=== PATIENT | female | born 1985 | race Caucasian/White ===

== ENCOUNTER 2017-02-03 18:34 | Emergency (ER) | payer MEDICAID ==
[~2017-02-03] VITALS: Ht 160 cm; Wt 60.0 kg
[2017-02-03 18:38] VITALS: Ht 160 cm; Wt 60.0 kg
[2017-02-03 20:47] LABS: URINE BLOOD (Dip) POC Trace-intact (NEGATIVE)
--- NOTE | 2017-02-03 20:51 | RADRPT ---
PROCEDURE: XR Chest. CLINICAL INDICATION: Cough. TECHNIQUE: Single frontal view. COMPARISON: None. FINDINGS: The lungs are clear. The heart size is normal. There is no pleural effusion. There is no pneumothorax. IMPRESSION: 1. Normal chest radiograph. RPTAT: QQ .Aj Peace MD, Date Time Electronically viewed and signed by .Aj Peace MD, on 02/03/2017 20:50 .R/
[2017-02-03 21:04] LABS: BASOPHIL # 0.1 10^3/ul (0.0-0.1); BASOPHILS % 0.7 % (0.0-2.0); EOSINOPHILS % 0.2 % (0.0-7.0); HEMATOCRIT 38.9 % (37.0-47.0); HEMOGLOBIN 13.4 g/dl (12.0-16.0); LYMPHOCYTES # 3.3 10^3/ul (0.8-2.9); LYMPHOCYTES % 37.3 % (15.0-51.0); MEAN CORPUSCULAR HEMOGLOBIN 30.2 pg (29.0-33.0); MEAN CORPUSCULAR HGB CONC 34.4 g/dl (32.0-37.0); MEAN CORPUSCULAR VOLUME 87.6 fl (82.0-101.0); MEAN PLATELET VOLUME 8.4 fl (7.4-10.4); MONOCYTE # 0.5 10^3/ul (0.3-0.9); MONOCYTES % 5.2 % (0.0-11.0); NEUTROPHILS % 56.4 % (39.0-77.0); PLATELET COUNT 419 10^3/UL (140-415); RED BLOOD COUNT 4.44 10^6/ul (4.20-5.40); RED CELL DISTRIBUTION WIDTH 11.9 % (11.5-14.5); WHITE BLOOD COUNT 8.9 10^3/ul (4.8-10.8)
[2017-02-03 21:24] LABS: CALCIUM 9.9 mg/dl (8.4-10.2); CREATININE 0.77 mg/dl (0.44-1.00); POTASSIUM 3.5 mmol/L (3.5-5.1)
--- NOTE | 2017-02-03 22:23 | ERD ---
ER Documentation Chief Complaint Chief Complaint anxiety r/t emotional family news received, tearful, carpalpedal spasms HPI Patient is a 31-year-old female here with who presents to the ED with 1 week of palpitations on and off, stress, anxiety reaction and difficulty breathing for the last 10 days. She states that the symptoms come and go. Denies radiation of pain. Denies chest pain. States that she went to the emergency room last week and was given albuterol which has not really helped. 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 She also complains of bilateral numbness and tingling in her hands and feet. She denies weakness or syncopal episode. Denies headache or dizziness. Denies suicidal or homicidal ideations. ROS All systems reviewed and are negative except as per history of present illness. PMhx/Soc Medical and Surgical Hx: pt denies Surgical Hx Hx Respiratory Disorders: Yes (BRONCHOSPASMS) Hx Alcohol Use: No Hx Substance Use: No Hx Tobacco Use: No Smoking Status: Never smoker Physical Exam Vitals Vital Signs Date Time Temp Pulse Resp B/P Pulse Ox O2 Delivery O2 Flow Rate FiO2 02/03/17 18:38 98.2 95 20 136/72 100 Physical Exam GENERAL: Well-developed, well-nourished female. Appears in no acute distress. tearful in room. HEAD: Normocephalic, atraumatic. EYES: Pupils are equally reactive bilaterally. EOMs grossly intact. No conjunctival erythema. ENT: Moist mucous membranes. No uvula deviation. No kissing tonsils. No exudates. NECK: Supple. No lymphadenopathy or thyromegaly. No meningismus. negative kernig. negative brudinski. LUNG: Clear to auscultation bilaterally. No rhonchi, wheezing, rales or coarse breath sounds. HEART: Regular rate and rhythm. No murmurs, rubs or gallops. Extremities: Equal pulses bilaterally. No peripheral clubbing, cyanosis or edema. No unilateral leg swelling. NEUROLOGIC: Alert and oriented. Moving all four extremities. 5/5 strength in all extremities. Normal speech. Steady gait. cranial nerves II through XII intact. Negative Romberg test. No ataxia. SKIN: Normal color. Warm and dry. No rashes or lesions. Capillary refill < 2 seconds Result Diagram: 02/03/17204302/03/172043 Results 24 hrs Laboratory Tests Test 02/03/17 20:44 02/03/17 20:45 White Blood Count 8.910^3/ul Red Blood Count 4.4410^6/ul Hemoglobin 13.4g/dl Hematocrit 38.9% Mean Corpuscular Volume 87.6fl Mean Corpuscular Hemoglobin 30.2pg Mean Corpuscular Hemoglobin Concent 34.4g/dl Red Cell Distribution Width 11.9% Platelet Count 83064^3/UL Mean Platelet Volume 8.4fl Neutrophils % 56.4% Lymphocytes % 37.3% Monocytes % 5.2% Eosinophils % 0.2% Basophils % 0.7% Nucleated Red Blood Cells % 0.0/100WBC Neutrophils # 5.010^3/ul Lymphocytes # 3.310^3/ul Monocytes # 0.510^3/ul Eosinophils # 0.010^3/ul Basophils # 0.110^3/ul Nucleated Red Blood Cells # 0.010^3/ul Sodium Level 143mmol/L Potassium Level 3.5mmol/L Chloride Level 108mmol/L Carbon Dioxide Level 21mmol/L Anion Gap 18 Blood Urea Nitrogen 11mg/dl Creatinine 0.77mg/dl Glucose Level 95mg/dl Calcium Level 9.9mg/dl Troponin I < 0.012ng/ml Bedside Urine pH (LAB) 7.5 Bedside Urine Protein (LAB) Negative Bedside Urine Glucose (UA) Negative Bedside Urine Ketones (LAB) Trace Bedside Urine Blood Trace-intact Bedside Urine Nitrite (LAB) Negative Bedside Urine Leukocyte Esterase (L Negative Procedures/MDM ER COURSE: I kept the patient and/or family informed of laboratory and diagnostic imaging results throughout the emergency room course. IMAGING STUDIES [place] [address] Radiology Main Line: [phone] DIAGNOSTIC IMAGING REPORT Patient: ASHLI EDMONDSON : 1985 Age: 31 Sex: F MR #: [id number] DOS: 02/03/17 Ordering MD: REYES ANTONIO PA-C Location: E Room/Bed: PROCEDURE: XR Chest. CLINICAL INDICATION: Cough. TECHNIQUE: Single frontal view. COMPARISON: None. FINDINGS: The lungs are clear. The heart size is normal. There is no pleural effusion. There is no pneumothorax. IMPRESSION: 1. Normal chest radiograph. RPTAT: QQ .Aj Peace MD, MD Date Time Electronically viewed and signed by .Aj Peace MD, on 02/03/2017 20:50 .R/ CC: REYES ANTONIO PA-C EKG, MONITORS, & DIAGNOSTIC IMAGING: EKG performed, read by Dr Sandoval 68bpm, normal sinus rhythm, normal axis, no acute ST segment changes, no T wave inversion no STEMI LAB INTERPRETATION: CBC showed no evidence of systemic infection or severe anemia. CMP showed no evidence of electrolyte abnormalities, severe acidosis, alkalosis, renal failure , or liver disease. Lipase showed no evidence of acute pancreatitis. UA showed no evidence of leukocytes, nitrites or hematuria. Urine test was negative. MEDICAL DECISION MAKING: This is a 31-year-old female who presents with multiple complaints. Vital signs were reviewed. Patient is afebrile. Patient is not hypoxic. Is not toxic or ill -appearing. This is patient's second visit to the ER for the symptoms therefore a cardiac workup was done. Troponin within normal limits. Chest x- ray within normal limits. Low suspicion for ACS, PE, AAA, dissection, DVT. Patient's vital signs are within normal limits. Likely stress reaction. There is no history of DVT or PE in the family therefore have low suspicion of PE and based on patient's presentation and vital signs. Low suspicion for intracranial hemorrhage, meningitis, intracranial mass, concussion, temporal arteritis, stroke, elevated intracranial pressure, seizure. Risk versus benefits of the CT scan were discussed and at this point risks outweigh the benefits. DISCHARGE: At this time, patient is stable for discharge and outpatient management with no new complaints during the ER course. Patient was sent home with copy of all imaging and laboratory studies and to follow-up with her primary care provider. Patient will be discharged home with instructions to recheck for new or worsening symptoms such as fever, nausea, weakness, LOC and to follow up with primary care in the next 1-2 days. Patient was advised to return to the ER for any new or worsening symptoms. Plan was discussed and patient and/or family understands and agrees. Home instructions were given. Departure Diagnosis: Primary Impression: Chest wall pain Condition: Stable Patient Instructions: Your Body's Response to Anxiety, Anxiety Reaction, Chest Wall Strain Additional Instructions: Llame al doctor MAANA y yue adam RADHA PARA DENTRO DE 1-2 OSMAN.Dgale a la secretaria que nosotros le instruimos hacer esta radha.Avise o llame si nguyen condicin se empeora antes de la radha. Regresa aqui si peor o no mejor. REYES ANTONIO PA-C Feb 03, 2017 22:23
== END 2017-02-03 22:35 | disposition home or self-care (01) ==
LOC: FTE 18:34
DX: R07.89 Other chest pain (principal)
CPT/HCPCS: 71010; 80048; 81003; 84484; 85025; 93005; Z7502

== ENCOUNTER 2017-04-21 19:46 | Emergency (ER) | END 2017-04-21 20:33 | disposition home or self-care (01) ==

== ENCOUNTER 2017-05-28 14:48 | Emergency (ER) | END 2017-05-28 20:10 | disposition home or self-care (01) ==

== ENCOUNTER 2017-08-25 20:03 | Emergency (ER) | END 2017-08-25 23:05 | disposition home or self-care (01) ==

== ENCOUNTER 2018-03-04 13:20 | Emergency (ER) | END 2018-03-04 17:36 | disposition home or self-care (01) ==

== ENCOUNTER 2018-03-07 19:40 | Emergency (ER) | END 2018-03-08 | disposition home or self-care (01) ==

== ENCOUNTER 2018-06-29 11:23 | Emergency (ER) | payer MEDICAID ==
[~2018-06-29] VITALS: Ht 167.6 cm; Wt 65.6 kg
[~2018-06-29 11:23] MED LIST: ACET500C5 PO; AMOX500C2 PO; GUAI-637 PO; IBUP-1542 PO; OSEL75CA23 PO; TYL500 PO
[2018-06-29 11:25] VITALS: BP 124/60; PULSE 85; RESP 18; Ht 167.6 cm; Wt 65.6 kg
[2018-06-29] MEDS ORDERED: METOCLOPRAMIDE 10 MG TAB PO ONE (12:00)
[2018-06-29] MEDS ORDERED: ACETAMINOPHEN 325 MG TAB PO ONE (12:00)
[2018-06-29] MEDS ORDERED: ACET500C5 PO (14:09)
[2018-06-29] MEDS ORDERED: METO10TA92 PO (14:09)
--- NOTE | 2018-06-29 14:13 | ERD ---
ER Documentation Chief Complaint Chief Complaint headache & nausea x3 days, 15 HPI 33-year-old female presents with bitemporal headache and occipital headache for last 3 days. She also has intermittent vomiting. She is 15 weeks by dates patient is vaginal bleeding, dysuria, chest pain, shortness breath, visual changes. She has mild lower abdominal pain ROS All systems reviewed and are negative except as per history of present illness. Medications Home Meds Active Scripts Metoclopramide* (Reglan*) 10 Mg Tablet, 10 MG PO Q6 PRN for NAUSEA AND/OR VOMITING, #15 TAB Prov:LYN GALVAN MD 06/29/18 Acetaminophen* (Tylophen*) 500 Mg Capsule, 1 CAP PO Q6H PRN for PAIN AND OR ELEVATED TEMP, #15 CAP Prov:LYN GALVAN MD 06/29/18 Acetaminophen* (Tylophen*) 500 Mg Capsule, 1 CAP PO Q6H PRN for PAIN AND OR ELEVATED TEMP, #20 CAP Prov:DAWNA BACA PA-C 05/28/17 Acetaminophen* (Tylenol*) 500 Mg Tab, 500 MG PO Q4H PRN for MILD PAIN LEVEL 1-3 for 3 Days, TAB Prov:JAN MOON 04/21/17 Ibuprofen* (Motrin*) 600 Mg Tab, 600 MG PO Q6, #30 TAB Prov:JAN MOON 04/21/17 Guaifenesin* (Robitussin*) 100 Mg/5 Ml Syrup, 200 MG PO Q6H PRN for COUGH for 3 Days, ML Prov:JAN MOON 04/21/17 Amoxicillin* (Amoxicillin*) 500 Mg Cap, 500 MG PO TID for 10 Days, CAP Prov:JAN MOON 04/21/17 Oseltamivir Phosphate* (Tamiflu*) 75 Mg Capsule, 75 MG PO BID for 5 Days, CAP Prov:JAN MOON 04/21/17 Allergies Allergies: Coded Allergies: No Known Allergy (Unverified , 08/25/17) PMhx/Soc History of Surgery: Yes (c sec x's 2) Anesthesia Reaction: No Hx Neurological Disorder: No Hx Respiratory Disorders: Yes (BRONCHOSPASMS) Hx Cardiac Disorders: Yes (htn) Hx Psychiatric Problems: No Hx Miscellaneous Medical Probl: No Hx Alcohol Use: No Hx Substance Use: No Hx Tobacco Use: No Smoking Status: Never smoker FmHx Family History: No diabetes, No coronary disease, No other Physical Exam Vitals Vital Signs Date Temp Pulse Resp B/P (MAP) Pulse Ox O2 O2 Flow FiO2 Time Delivery Rate 06/29/18 98.6 85 18 124/60 100 11:25 (81) Physical Exam Const: No acute distress Head: Atraumatic Eyes: Normal Conjunctiva ENT: Normal External Ears, Nose and Mouth. Neck: Full range of motion. No meningismus. Resp: Clear to auscultation bilaterally Cardio: Regular rate and rhythm, no murmurs Abd: Soft, non tender, non distended. Normal bowel sounds Skin: No petechiae or rashes Back: No midline or flank tenderness Ext: No cyanosis, or edema Neur: Awake and alert Psych: Normal Mood and Affect Results 24 hrs Laboratory Tests Test 06/29/18 11:55 Urine Color STRAW Urine Clarity CLEAR Urine pH 7.0 Urine Specific Carson 1.002 Urine Ketones NEGATIVE mg/dL Urine Nitrite NEGATIVE mg/dL Urine Bilirubin NEGATIVE mg/dL Urine Urobilinogen NEGATIVE mg/dL Urine Leukocyte Esterase NEGATIVE Chiqui/ul Urine Hemoglobin NEGATIVE mg/dL Urine Glucose NEGATIVE mg/dL Urine Total Protein NEGATIVE mg/dl Current Medications Medications Dose Sig/Kiran Start Time Status Last (Trade) Ordered Route PRN Stop Time Admin Dose Reason Admin 650 mg ONCE ONCE 06/29/18 DC 06/29/18 Acetaminophen PO 12:00 06/29/18 11:55 (Tylenol 12:01 Tab) 10 mg ONCE ONCE 06/29/18 DC 06/29/18 Metoclopramid PO 12:00 06/29/18 11:55 e HCl 12:01 (Reglan) Procedures/MDM Urine shows no signs of infection or significant acute abnormalities. Pelvic ultrasound shows normal-appearing 14-week 4-day without acute abnormalities. Patient was given Tylenol and Reglan. Patient presents with bitemporal headache and symptoms suggestive of tension headache. She has no signs or symptoms of central lesions, meningitis, deficits, patient is additional concerning symptoms. She has mild lower abdominal pain a normal- appearing ultrasound. She has no signs of UTI and current signs or symptoms to assist appendicitis, surgical abdomen, additional emergent causes of presenting complaints. Will treat with Tylenol, Reglan, further observation at home and return precautions. the patient was stable with no new complaints during the ER course. Clinically, there is no current evidence to suggest meningitis, sepsis, acute abdomen, pneumonia, stroke, acute coronary syndrome, pulmonary embolism, aortic dissection or any other emergent condition appearing to require further evaluation or hospitalization. Patient counseled regarding my diagnostic impression and care plan. Prior to discharge all questions answered. Pt agrees with treatment plan and understands strict return precautions. Pt is instructed to follow up with primary care provider within 24-48 hours. Precautionary instructions provided including instructions to return to the ER if not improving or for any worsening or changing symptoms or concerns. Departure Diagnosis: Primary Impression: Vomiting Vomiting type: unspecified Vomiting Intractability: unspecified Nausea presence: unspecified Qualified Codes: R11.10 - Vomiting, unspecified Additional Impression: Headache Headache type: unspecified Headache chronicity pattern: unspecified pattern Intractability: not intractable Qualified Codes: R51 - Headache Condition: Stable Patient Instructions: Self-Care for Headaches, Vomiting (6Y-Adult) Additional Instructions: Examines normal hoy. Cheque otro vez con nguyen doctor primario en el proximo flower or regresa para mas o nueva simptomas. LYN GALVAN MD Jun 29, 2018 14:12
== END 2018-06-29 14:24 | disposition home or self-care (01) ==
LOC: FTE 11:23
DX: O21.9 Vomiting of pregnancy, unspecified (principal); R51 Headache; O10.011 Pre-existing essential hypertension complicating pregnancy, first trimester; O26.892 Other specified pregnancy related conditions, second trimester; Z3A.14 14 weeks gestation of pregnancy
CPT/HCPCS: 76805; 81003; Z7502; Z7610

== ENCOUNTER 2018-07-17 23:14 | Emergency (ER) | payer MEDICAID, OTHER ==
[~2018-07-17] VITALS: Wt 67.7 kg
[~2018-07-17 23:14] MED LIST changes: +METO10TA92 PO
[2018-07-18] MEDS ORDERED: ACETAMINOPHEN 500 MG TAB PO STA (00:54)
[2018-07-18] MEDS ORDERED: ACET500C5 PO (02:41)
[2018-07-18] MEDS ORDERED: CEPH-443 PO (02:43)
--- NOTE | 2018-07-18 02:50 | ERD ---
ER Documentation Chief Complaint Chief Complaint flank pain that radiates to vagina with urgency x 1 day HPI Patient is a 33-year-old female, G5, P2, AB 2, approximately 18 weeks p regnant, presents the ER for concerns of vaginal pain along with dysuria and urinary frequency. She states the pain originates in her vaginal area radiates to her lower back. She denies any vaginal bleeding. Patient denies any fluid loss. She does report white discharge. She denies any fevers, chills, nausea, vomiting or upper abdominal pain. Patient denies any chest pain or shortness of breath. States her [employer]ALTH[employer]ARE ADMIN[employer]RATION INTERN is at the [facility]. ROS All systems reviewed and are negative except as per history of present illness. Medications Home Meds Active Scripts Cephalexin* (Keflex*) 500 Mg Capsule, 500 MG PO TID for 7 Days, CAP Prov:HANDY ADAME PA-C 07/18/18 Acetaminophen* (Tylophen*) 500 Mg Capsule, 1 CAP PO Q6H PRN for PAIN AND OR ELEVATED TEMP, #20 CAP Prov:HANDY ADAME PA-C 07/18/18 Metoclopramide* (Reglan*) 10 Mg Tablet, 10 MG PO Q6 PRN for NAUSEA AND/OR VOMITING, #15 TAB Prov:LYN GALVAN MD 06/29/18 Acetaminophen* (Tylophen*) 500 Mg Capsule, 1 CAP PO Q6H PRN for PAIN AND OR ELEVATED TEMP, #15 CAP Prov:LYN GALVAN MD 06/29/18 Acetaminophen* (Tylophen*) 500 Mg Capsule, 1 CAP PO Q6H PRN for PAIN AND OR ELEVATED TEMP, #20 CAP Prov:DAWNA BACA PA-C 05/28/17 Acetaminophen* (Tylenol*) 500 Mg Tab, 500 MG PO Q4H PRN for MILD PAIN LEVEL 1-3 for 3 Days, TAB Prov:JAN MOON 04/21/17 Ibuprofen* (Motrin*) 600 Mg Tab, 600 MG PO Q6, #30 TAB Prov:JAN MOON 04/21/17 Guaifenesin* (Robitussin*) 100 Mg/5 Ml Syrup, 200 MG PO Q6H PRN for COUGH for 3 Days, ML Prov:JAN MOON 04/21/17 Amoxicillin* (Amoxicillin*) 500 Mg Cap, 500 MG PO TID for 10 Days, CAP Prov:JAN MOON 04/21/17 Oseltamivir Phosphate* (Tamiflu*) 75 Mg Capsule, 75 MG PO BID for 5 Days, CAP Prov:JAN MOON 04/21/17 Allergies Allergies: Coded Allergies: No Known Allergy (Unverified , 08/25/17) PMhx/Soc History of Surgery: Yes (c sec x's 2) Anesthesia Reaction: No Hx Neurological Disorder: No Hx Respiratory Disorders: Yes (BRONCHOSPASMS) Hx Cardiac Disorders: Yes (htn) Hx Psychiatric Problems: No Hx Miscellaneous Medical Probl: No Hx Alcohol Use: No Hx Substance Use: No Hx Tobacco Use: No Smoking Status: Never smoker FmHx Family History: No diabetes Physical Exam Vitals Vital Signs Date Temp Pulse Resp B/P (MAP) Pulse Ox O2 O2 Flow FiO2 Time Delivery Rate 07/17/18 98.5 85 16 130/62 99 23:19 (84) Physical Exam GENERAL: Well-developed, well-nourished female. Appears in no acute distress. HEAD: Normocephalic, atraumatic. EYES: Pupils are equally reactive bilaterally. EOMs grossly intact. No conjunctival erythema. ENT: Moist mucous membranes. No uvula deviation. No kissing tonsils. NECK: Supple. No meningismus. Normal range of motion of the neck. LUNG: Clear to auscultation bilaterally. No rhonchi, wheezing, rales or coarse breath sounds. HEART: Regular rate and rhythm. No murmurs, rubs or gallops. ABDOMEN: Soft, nontender to palpation except for in the suprapubic region. Gr avid abdomen. No rebound tenderness, no guarding. (-) McBurney's point tenderness. No CVA tenderness. BACK: No midline tenderness. EXTREMITIES: Equal pulses bilaterally. No peripheral clubbing, cyanosis or edema. No unilateral leg swelling. NEUROLOGIC: Alert and oriented. Moving all four extremities without any difficulty. Normal speech. Steady gait. SKIN: Normal color. Warm and dry. No rashes or lesions. Results 24 hrs Laboratory Tests Test 07/18/18 01:28 Bedside Urine pH (LAB) 7.0 Bedside Urine Protein (LAB) Negative Bedside Urine Glucose (UA) Negative Bedside Urine Ketones (LAB) Negative Bedside Urine Blood Negative Bedside Urine Nitrite (LAB) Negative Bedside Urine Leukocyte Esterase (L Negative Current Medications Medications Dose Sig/Kiran Start Time Status Last (Trade) Ordered Route PRN Stop Time Admin Dose Reason Admin 1,000 mg ONCE STAT 07/18/18 DC 07/18/18 Acetaminophen PO 00:54 01:08 (Tylenol 07/18/18 00:56 Tab) Procedures/MDM ED COURSE: The patient was stable throughout ED course. I kept the patient and/or family informed of laboratory and diagnostic imaging results throughout the ED course. DIAGNOSTIC IMAGING: Read by radiologist. Patient: ASHLI BEE : 12/06/1984 Age: 33 Sex: F MR #: [id number] DOS: 07/18/18 0054 Ordering MD: HANDY ADAME PA-C Location: FT Room/Bed: PROCEDURE: US OB CLINICAL INDICATION: . Pelvic pain. Dysuria. TECHNIQUE: Multiple transabdominal sonographic images of the pelvis and gravid uterus were obtained. The images were reviewed on a PACS workstation. COMPARISON: June 29, 2018 FINDINGS: Gestation: Single intrauterine gestation. Cardiac activity: 148 beats per minute. Presentation: Cephalic Placenta: Location: Anterior Appearance: No previa or abruption. Measurements: BPD = 4.05 cm, 18 weeks +/- 12 days HC = 14.64 cm, 17 weeks 6 days +/- 8 days AC = 11.60 cm, 17 weeks 3 days +/- 12 days FL = 2.42 cm, 17 weeks 2 days +/- 10 days Gestational Age: AUA estimated gestational age: 17 weeks 5 days +/- 9 days LMP estimated gestational age: 18 weeks 0 days AUA estimated date of delivery: December 21, 2018 EFW = 194 g +/- 29 g, 15 %ile IMPRESSION: 1. Single intrauterine gestation of 17 weeks 5 days +/- 9 days by ultrasound with heart rate of 148. 2. Estimated date of delivery of December 21, 2018. 3. No abnormality is identified. RPTAT:HGST Cecile Rich Physician Date Time Electronically viewed and signed by Cecile Rich Physician on 07/18/2018 02:30 GT/ Shayy pelvic pain female CC: HANDY ADAME PA-C [id number] PROCEDURES: None. MEDICATIONS GIVEN: Tylenol MEDICAL DECISION MAKING: Patient is a 33-year-old female, G5, P2, AB 2, approximately 18 weeks p regnant, presents the ER for concerns of vaginal pain along with dysuria and urinary frequency. Vital signs were reviewed. Patient is afebrile. Patient was not hypoxic. Patient was hemodynamically stable. Per ANNABEL report, patient has had 7 visits to the emergency department in the last year. UA was negative however given that patient does report symptoms of dysuria and urinary frequency I will treat patient with course of antibiotics. Pelvic ultrasound did show single intrauterine gestation of 17 weeks and 5 days. No abnormalities noted. At this time the patient presentation most consistent with UTI and pelvic pain in . Low suspicion for PROM, pyelonephritis, nephrolithiasis, spontaneous , placental abruption, placenta previa, vasa previa, uterine eruption, preeclampsia, clamped patient was nontoxic, [id number] prior to discharge. Patient advised to follow-up with HEALTHCARE [employer]MINISTRATION INTERN. PRESCRIPTIONS: Tylenol, Keflex DISCHARGE: At this time, patient is stable for discharge and outpatient management. Patient advised to follow-up with HEALTHCARE ADMINISTRATION INTERN.. I have instructed the patient to promptly return to the ER at any time for any new or worsening symptoms including increased pain, nausea, vomiting, continued bleeding, weakness, syncope or fever. The patient and/or family expressed understanding of and agreement with this plan. All questions were answered. Home care instructions were provided. Disclaimer: Inadvertent spelling and grammatical errors are likely due to EHR/dictation software use and do not reflect on the overall quality of patient care. Also, please note that the electronic time recorded on this note does not necessarily reflect the actual time of the patient encounter. Departure Diagnosis: Primary Impression: UTI (urinary tract infection) Urinary tract infection type: site unspecified Hematuria presence: without hematuria Qualified Codes: N39.0 - Urinary tract infection, site not specified Additional Impressions: Weeks of gestation: unspecified Qualified Codes: Z34.90 - Encounter for supervision of normal , unspecified, unspecified trimester Pelvic pain Condition: Fair Patient Instructions: Understanding Urinary Tract Infections (UTIs) Referrals: [facility] YOU HAVE RECEIVED A MEDICAL SCREENING EXAM AND THE RESULTS INDICATE THAT YOU DO NOT HAVE A CONDITION THAT REQUIRES URGENT TREATMENT IN THE EMERGENCY DEPARTMENT. FURTHER EVALUATION AND TREATMENT OF YOUR CONDITION CAN WAIT UNTIL YOU ARE SEEN IN YOUR DOCTORS OFFICE WITHIN THE NEXT 1-2 DAYS. IT IS YOUR RESPONSIBILITY TO MAKE AN APPOINTMENT FOR FOLOW-UP CARE. IF YOU HAVE A PRIMARY DOCTOR --you should call your primary doctor and schedule an appointment IF YOU DO NOT HAVE A PRIMARY DOCTOR YOU CAN CALL OUR PHYSICIAN REFERRAL HOTLINE AT IF YOU CAN NOT AFFORD TO SEE A PHYSICIAN YOU CAN CHOSE FROM THE FOLLOWING [facility] [address] [facility] [facility] [address] [facility] [address] [facility]. [facility] [address] [facility] [facility]. [facility] [address] [facility] [address] [facility] [address] [facility]. [facility] [address] [facility]. [facility] YOU HAVE RECEIVED A MEDICAL SCREENING EXAM AND THE RESULTS INDICATE THAT YOU DO NOT HAVE A CONDITION THAT REQUIRES URGENT TREATMENT IN THE EMERGENCY DEPARTMENT. FURTHER EVALUATION AND TREATMENT OF YOUR CONDITION CAN WAIT UNTIL YOU ARE SEEN IN YOUR DOCTORS OFFICE WITHIN THE NEXT 1-2 DAYS. IT IS YOUR RESPONSIBILITY TO MAKE AN APPOINTMENT FOR FOLOW-UP CARE. IF YOU HAVE A PRIMARY DOCTOR --you should call your primary doctor and schedule and appointment IF YOU DO NOT HAVE A PRIMARY DOCTOR YOU CAN CALL OUR PHYSICIAN REFERRAL HOTLINE AT . IF YOU CAN NOT AFFORD TO SEE A PHYSICIAN YOU CAN CHOSE FROM THE FOLLOWING [facility] INSTITUTIONS: [facility] [address] [place] [address] [facility] [address] [place] [address] [facility] [address] [place] [address] [employer] [place] [address] [facility] [address] [place] [address] OFFICE FAX , [facility] [address] [place] [address] DR. DOUGLAS, ITHACA [address] [place] [address] DR RAMIREZ, [facility] [address] [facility], [address], [facility] [address] [address] [facility] [address] [facility] [place] [address] [facility] [address] [place] [address] [address] [facility] [address] - DR LARSON TWILA [address], [place] [address] DR RAI, TITO [address] [facility]. [address], [place] [address] DR TATE [facility] [address] [place], [place] [id number] Additional Instructions: Call your primary care doctor TOMORROW for an appointment during the next 1-2 days.See the doctor sooner or return here if your condition worsens before your appointment time. HANDY ADAME PA-C Jul 18, 2018 02:50
[2018-07-18 02:59] VITALS: BP 118/76; PULSE 78; RESP 16
== END 2018-07-18 03:00 | disposition home or self-care (01) ==
LOC: FTE 23:14
DX: O23.41 Unspecified infection of urinary tract in pregnancy, first trimester (principal); R10.2 Pelvic and perineal pain; O10.012 Pre-existing essential hypertension complicating pregnancy, second trimester; Z3A.17 17 weeks gestation of pregnancy
CPT/HCPCS: 76805; 81003; Z7502; Z7610

== ENCOUNTER 2018-08-03 14:37 | Outpatient (CLI) | payer MEDICAID ==
[~2018-08-03] VITALS: Ht 154.9 cm; Wt 69.0 kg
[~2018-08-03 14:37] MED LIST changes: +CEPH-443 PO
[2018-08-03 15:26] VITALS: Ht 154.9 cm; Wt 69.0 kg
[2018-08-03 15:27] VITALS: BP 134/63; PULSE 90
[2018-08-03] MEDS ORDERED: PNV11TAB PO (18:07)
--- NOTE | 2018-08-03 18:18 | TRIAGE ---
OB Triage Datetime Report Generated by CPN: 08/03/2018 18:18 Datetime: 08/03/2018 17:56 Stage of : OB Triage Datetime: 08/03/2018 17:02 Labor Evaluation Frequency: 0 Monitor Mode: External Pattern: Normal: <= 5 Contractions in 10 Minutes Resting Tone [place]: Relaxed Comments: REMOVED DUE TO GESTATIONAL AGE Pain Assessment Pain Scale: 4 Pain Presence: Constant Pain Type: Pressure; Ache Pain Goal: 3 Pain Relief Measures: Comfort Measures Datetime: 08/03/2018 16:06 Stage of : OB Triage Datetime: 08/03/2018 16:01 Labor Evaluation Frequency: 0 Monitor Mode: External Pattern: Normal: <= 5 Contractions in 10 Minutes Resting Tone [place]: Relaxed Comments: REMOVED DUE TO GESTATIONAL AGE Pain Assessment Pain Scale: 5 Pain Presence: Intermittent Pain Type: Ache Pain Location: Back Pain Goal: 3 Pain Relief Measures: Comfort Measures Datetime: 08/03/2018 15:27 Comments: removed due to gestational age Datetime: 08/03/2018 14:50 Stage of : OB Triage Assessment Type: Triage EGA: 21.0 Maternal Assessment Level of Consciousness: Fully Conscious DTR's/Clonus: DTRs 2+; No Clonus Headache: Denies Blurred Vision: No Respiratory Effort: Unlabored; Regular Rhythm; Equal Expansion Breath Sounds, Left: Clear and Equal Breath Sounds, Right: Clear and Equal Nausea/Vomiting: Denies RUQ Epigastric Pain: Denies Facial Edema: None Temperature Route: Axillary Fall Risk Assessment History of Falling: (0) No Secondary Diagnosis: (0) No Ambulatory Aid: (0) Bedrest/Nurse Assist IV Therapy: (0) No Gait: (0) Normal/Bedrest/Immobile Mental Status: (0) Oriented to Own Ability Fall Score: 0 Fall Risk Score Definition: No Risk: No action required Labor Evaluation Frequency: 0 Monitor Mode: External Pattern: Normal: <= 5 Contractions in 10 Minutes Resting Tone [place]: Relaxed Heart Rate FHR Baseline Rate: 145 Monitor Mode: External US Variability: Moderate 6-25 bpm Accelerations: 10X10 Decelerations: None Category: Category I Pain Assessment Pain Scale: 5 Pain Presence: Intermittent (Annotations: WHEN WALKING/STANDING) Pain Type: Cramping Pain Location: Perineum Pain Goal: 3 Pain Relief Measures: Comfort Measures Datetime: 08/03/2018 14:49 Time of Arrival: 08/03/2018 14:30 Arrived By: Ambulatory Arrived From: Home Chief Complaint: C/O PERINEAL PAIN AND DFM, DENIES LEAKING OR BLEEDING Movement: Decreased Contractions: Denies/Absent Rupture of Membranes: Denies Vaginal Bleeding: None Vaginal Discharge: Denies Recent Sexual Intercouse: Denies Abdominal Trauma: Not Applicable Patient Complaints: Cramping Time Provider Notified: 08/03/2018 16:06 Provider Notified: sofi Initial Plan: toco, u/a c_s, cl
--- NOTE | 2018-08-03 20:30 | PN ---
Triage Information Date/Time 08/03/18 Reason for visit: DFM Weeks of Gestation 21w /Para Diabetes: none Hypertention: none Additional information back pain pelvic pain with walk alleviated with rest 2weeks ago here at triage treated for UTI Objective Vital Signs Date Temp Pulse Resp B/P (MAP) Pulse Ox O2 O2 Flow FiO2 Time Delivery Rate 08/03/18 98.7 90 134/63 15:27 (86) Heart Rate: 130's Heart Rate Comments adequate for GA Contractions: None Results/Medications Results 24 hrs Laboratory Tests Test 08/03/18 15:00 Urine Color COLORLESS Urine Clarity CLEAR Urine pH 6.0 Urine Specific [place] 1.004 Urine Ketones NEGATIVE Urine Nitrite NEGATIVE Urine Bilirubin NEGATIVE Urine Urobilinogen NEGATIVE Urine Leukocyte Esterase NEGATIVE Urine Hemoglobin NEGATIVE Urine Glucose NEGATIVE Urine Total Protein NEGATIVE Imaging Results CVL 4.6cm Disposition: Discharge Assessment/Plan A IUP 21w ligament pain P discharge home rec to rest with drink fluid NUHA CHESTER MD August 03, 2018 20:30
== END 2018-08-03 18:13 | disposition home or self-care (01) ==
LOC: OBT 14:37 → L-D 14:38 → OBT 18:13
PROVIDERS: ATTEND Obstetrics & Gynecology
DX: O36.8120 Decreased fetal movements, second trimester, not applicable or unspecified (principal); O26.892 Other specified pregnancy related conditions, second trimester; R10.2 Pelvic and perineal pain; Z3A.21 21 weeks gestation of pregnancy
CPT/HCPCS: 76817; 81003; 87086; Z7500; G0463

== ENCOUNTER 2018-10-16 11:20 | Outpatient (CLI) | payer MEDICAID ==
[~2018-10-16] VITALS: Ht 157.5 cm; Wt 74.8 kg
[~2018-10-16 11:20] MED LIST changes: -ACET500C5 PO; -AMOX500C2 PO; -CEPH-443 PO; -GUAI-637 PO; -IBUP-1542 PO; -METO10TA92 PO; -OSEL75CA23 PO; +PNV11TAB PO; -TYL500 PO
[2018-10-16 11:28] VITALS: Ht 157.5 cm; Wt 74.8 kg
--- NOTE | 2018-10-16 11:46 | PN ---
Triage Information Date/Time Reason for visit: She felt on her side at her kitchen. No direct abdominal trauma. Weeks of Gestation 30 weeks and 6 days /Para -0-2-2 Diabetes: none Hypertention: none Objective Heart Rate: 130's Contractions: None Results/Medications Imaging Results breathing movement = 2/2 tone = 2/2 motion = 2/2 TANYA = 2/2 TANYA = 14.6 cm Single live intrauterine with cardiac activity of 166 bpm. position is breech. The placenta is anterior. IMPRESSION: 1. Single live intrauterine gestation. 2. Biophysical profile = 8. 3. TANYA = 14.6 cm. 4. Breech presentation. Disposition: Discharge Assessment/Plan 33 years old -0-2-2 with single intrauterine at 30 weeks and 6 days with a KHALIF of 12/19/2018 presented to triage with complaint of fall. She has history of 2 previous delivery. She states good movement. She denies nausea, vomiting, shortness of breath, chest pain, headache, visual changes, vaginal bleeding or LOF. -FHR: No sign of metabolic acidosis- Category I -Contractions: None -She observed for 3 hours. No uterine contraction was noted -Ultrasound performed: Normal TANYA -Symptoms and sign of labor, preeclampsia, kick count discussed with patient, she voiced understanding. All of her questions answered. -Patient was discharged home in stable condition with the appropriate discharge instructions provided. I would like patient to have close follow-up with her primary physician or outpatient clinic in 1-2 days or return to triage for worsening symptoms or any other urgent concerns. TIGRE OCAMPO Oct 16, 2018 11:46
--- NOTE | 2018-10-16 13:52 | TRIAGE ---
OB Triage Datetime Report Generated by CPN: 10/16/2018 13:52 Datetime: 10/16/2018 13:30 Stage of : OB Triage Labor Evaluation Frequency: none Monitor Mode: External Resting Tone [place]: Relaxed Heart Rate FHR Baseline Rate: 130 Monitor Mode: External US FHR Baseline Changes: No Baseline Change Variability: Moderate 6-25 bpm Accelerations: 15X15 Decelerations: None Category: Category I Datetime: 10/16/2018 13:00 Labor Evaluation Frequency: none Heart Rate FHR Baseline Rate: 130 Monitor Mode: External US Variability: Moderate 6-25 bpm Accelerations: 15X15 Decelerations: None Category: Category I Datetime: 10/16/2018 12:30 Stage of : OB Triage Maternal Assessment Level of Consciousness: Keenly Alert, Responsive Labor Evaluation Frequency: 0 Monitor Mode: External Resting Tone [place]: Relaxed Heart Rate FHR Baseline Rate: 145 Monitor Mode: External US Variability: Moderate 6-25 bpm Accelerations: 15X15 Decelerations: None Category: Category I Pain Assessment Pain Scale: 0 Pain Goal: 3 Vaginal Exam Membrane Status: Intact Vaginal Bleeding: None Datetime: 10/16/2018 11:23 Time of Arrival: 10/16/2018 11:16 EGA: 30.6 Arrived By: Ambulatory Arrived From: Home Chief Complaint: PT. HERE S/P FALL ON SIDE Movement: Present Contractions: Denies/Absent Rupture of Membranes: Denies Vaginal Bleeding: None Vaginal Discharge: Denies Recent Sexual Intercouse: Yes Abdominal Trauma: Not Applicable Patient Complaints: Cramping; Back Pain Time Provider Notified: 10/16/2018 11:30 Provider Notified: HADADIAN Initial Plan: UA/BPP/MONITOR EFM FOR 2 HOURS Datetime: 08/03/2018 14:50 EGA: 21.0 Fall Risk Assessment Fall Score: 0 Fall Risk Score Definition: No Risk: No action required
== END 2018-10-16 13:58 | disposition home or self-care (01) ==
LOC: OBT 11:20 → L-D 11:20 → OBT 13:58
PROVIDERS: ATTEND Obstetrics & Gynecology
DX: O26.893 Other specified pregnancy related conditions, third trimester (principal); Z3A.30 30 weeks gestation of pregnancy; T14.90XA Injury, unspecified, initial encounter; W19.XXXA Unspecified fall, initial encounter; Y92.000 Kitchen of unspecified non-institutional (private) residence as the place of occurrence of the external cause
CPT/HCPCS: 76818; 81001; Z7500; G0463

== ENCOUNTER 2018-11-07 17:48 | Outpatient (CLI) | payer MEDICAID ==
[~2018-11-07] VITALS: Ht 152.4 cm; Wt 76.3 kg
[2018-11-07 21:28] VITALS: Ht 152.4 cm; Wt 76.3 kg
[2018-11-07 21:30] VITALS: BP 135/70; PULSE 85; RESP 18
--- NOTE | 2018-11-08 13:01 | PN ---
Triage Information Date/Time November 07, 2018, late entry note Reason for visit: Uterine contractions Weeks of Gestation 34 weeks /Para 5 para 2 Diabetes: none Hypertention: none Additional information 33-year-old G5, P2 with IUP at 34 weeks presented with complaint of leaking of fluid She denies any decreased movement. Reports also some contractions. Objective Vital Signs Date Temp Pulse Resp B/P (MAP) Pulse Ox O2 O2 Flow FiO2 Time Delivery Rate 11/07/18 98.0 85 18 135/70 Room Air 21:30 (91) Heart Rate: 130's Heart Rate Comments Appropriate for gestational age and category 1 Contractions: None Exam Appearance: Alert and oriented x4 does not appear to be in acute distress Abdomen: Soft, gravid, fundal height consider gestational age NST: Category 1 Occasional contraction resolved with hydration Assessment: Examination nitrazine negative, bili negative, ROM plus negative, TANYA: 14 Results/Medications Results 24 hrs Laboratory Tests Test 11/07/18 21:40 Urine Color YELLOW Urine Clarity SLIGHTLY CLOUDY A Urine pH 6.0 Urine Specific [place] 1.014 Urine Ketones NEGATIVE Urine Nitrite NEGATIVE Urine Bilirubin NEGATIVE Urine Urobilinogen NEGATIVE Urine Leukocyte Esterase NEGATIVE Urine Microscopic RBC 0 Urine Microscopic WBC 2 Urine Squamous Epithelial Cells FEW Urine Bacteria FEW A Urine Hemoglobin NEGATIVE Urine Glucose NEGATIVE Urine Total Protein NEGATIVE Membranes Rupture NEGATIVE Imaging Results PROCEDURE: US biophysical profile. CLINICAL INDICATION: Labor TECHNIQUE: Multiple sonographic images of the pelvis were obtained. The images were reviewed on a PACS workstation. COMPARISON: No prior studies are available for comparison. FINDINGS: There is a single viable intrauterine gestation, in breech presentation. Results of the biophysical profile are as follows breathing movement = 2/2 Gross body movement = 2/2 tone = 2/2 Quantitative amniotic fluid volume = 2/2. This yields a biophysical profile score of 8/8. Amniotic fluid index measures 13.4 cm. There is anterior grade II placenta. heart tones are measured at 154 beats per minute. IMPRESSION: Single viable intrauterine gestation, with biophysical profile of 8/8. PROCEDURE: US OB. CLINICAL INDICATION: Rupture of Membranes TECHNIQUE: Multiple sonographic images of the pelvis were obtained. The images were reviewed on a PACS workstation. COMPARISON: No prior studies are available for comparison. FINDINGS: Noted is a single intrauterine gestation in breech lie with positive heart beat measuring 146 beats per minute. Placenta is anterior grade 1 without evidence of previa. The amniotic fluid index measures 14 cm. IMPRESSION: Single intrauterine gestation in breech lie with positive heart beat. Amniotic fluid index 14 cm. Anterior grade 1 placenta. Disposition: Discharge Assessment/Plan IUP at 34 weeks Evidence of rupture membrane or labor Antepartum testing reassuring For x2. Contractions resolved after hydration. Patient was feeling comfortable Doing well Contraction resolved after p.o. hydration Patient discharged home in stable condition with a strict labor precautions and kick count and follow-up with primary OB office within 48 hours after discharge from the hospital Patient verbalized understanding. All questions answered to patient with satisfaction. GHULAM LONDON MD Nov 08, 2018 13:01
== END 2018-11-08 00:14 | disposition home or self-care (01) ==
LOC: OBT 17:48 → L-D 17:49 → OBT 11-08 00:14
PROVIDERS: ATTEND Obstetrics & Gynecology
DX: O62.9 Abnormality of forces of labor, unspecified (principal); Z3A.34 34 weeks gestation of pregnancy
CPT/HCPCS: 76815; 76818; 81001; 84112; Z7500; 81003; G0463

== ENCOUNTER 2018-12-14 19:15 | Inpatient (IN) | payer MEDICAID ==
[~2018-12-14] VITALS: Ht 154.9 cm; Wt 79.3 kg
[2018-12-14 20:19] VITALS: Ht 154.9 cm; Wt 79.3 kg
[2018-12-14 20:20] VITALS: BP 131/70; PULSE 77; RESP 16
[2018-12-14] MEDS ORDERED: LACTATED RINGER'S 1,000 ML IV PRN (20:22)
[2018-12-14] MEDS ORDERED: LACTATED RINGER'S 1,000 ML IV SCH (20:22)
[2018-12-14] MEDS ORDERED: CITRIC ACID/NA CITRATE 30 ML CUP ONE (20:26)
[2018-12-14] MEDS ORDERED: CEFAZOLIN 2 GM/50 ML (PMX) 50 ML IVPB ONE ×2 (20:26→21:00)
[2018-12-14] MEDS ORDERED: AMPICILLIN 2 GM/NS (PMX) 100 ML IV ONE (20:30)
[2018-12-14] MEDS ORDERED: MISOPROSTOL 200 MCG TAB PR PRN (20:30)
[2018-12-14] MEDS ORDERED: METHYLERGONOVINE 0.2 MG INJ IM PRN (20:30)
[2018-12-14] MEDS ORDERED: OXYTOCIN 30 UNITS/LR 500 ML IV PRN (20:30)
[2018-12-14] MEDS ORDERED: LIDOCAINE 1% (MPF) 30 ML INJ INJ PRN (20:30)
[2018-12-14] MEDS ORDERED: CARBOPROST 250 MCG INJ IM PRN (20:30)
[2018-12-14] MEDS ORDERED: OXYTOCIN 30 UNITS/LR 500 ML IV SCH (20:30)
[2018-12-14] MEDS ORDERED: CITRIC ACID/NA CITRATE 30 ML CUP PO ONE ×2 (21:00)
[2018-12-14] MEDS ORDERED: KETOROLAC 30 MG INJ ONE (22:21)
[2018-12-14] MEDS ORDERED: OXYTOCIN 30 UNITS/LR 500 ML IV ONE ×2 (22:21→23:39)
[2018-12-14] MEDS ORDERED: morphine SULFATE/PF (10 MG/10 ML) INJ ONE (22:21)
[2018-12-14] MEDS ORDERED: METOCLOPRAMIDE 10 MG INJ ONE (22:21)
[2018-12-14] MEDS ORDERED: ONDANSETRON 4 MG INJ ONE (22:21)
[2018-12-15] VITALS (7 sets, daily range): BP systolic 100–122; BP diastolic 55–65; PULSE 65–89; RESP 16–18
[2018-12-15] MEDS ORDERED: KETOROLAC 30 MG INJ IV PRN ×2
[2018-12-15] MEDS ORDERED: NALOXONE (0.4 MG/ML) INJ IV PRN
[2018-12-15] MEDS ORDERED: ONDANSETRON 4 MG INJ IV PRN ×2
[2018-12-15] MEDS ORDERED: morphine 2 MG INJ IV PRN ×5
[2018-12-15] MEDS ORDERED: MEPERIDINE 25 MG INJ IV PRN
[2018-12-15] MEDS ORDERED: DIPHENHYDRAMINE 50 MG INJ IV PRN ×2
[2018-12-15] MEDS ORDERED: OXYTOCIN 30 UNITS/LR 500 ML IV SCH (02:08)
[2018-12-15] MEDS: DEXTROSE 5%-LR 1,000 ML IV SCH ×3 (02:08→21:22)
[2018-12-15] MEDS ORDERED: METHYLERGONOVINE 0.2 MG INJ IM PRN (02:30)
[2018-12-15] MEDS ORDERED: OXYTOCIN 30 UNITS/LR 500 ML IV PRN (02:30)
[2018-12-15] MEDS ORDERED: CARBOPROST 250 MCG INJ IM PRN (02:30)
[2018-12-15] MEDS ORDERED: METHYLERGONOVINE 0.2 MG TAB PO PRN (02:30)
[2018-12-15] MEDS ORDERED: MISOPROSTOL 200 MCG TAB PR PRN (02:30)
[2018-12-15] MEDS ORDERED: LANOLIN HPA 1 PKT TOP PRN (02:30)
[2018-12-15] MEDS: SENNA/DOCUSATE NA (8.6MG/50MG) TAB PO SCH ×2 (10:09→20:49)
[2018-12-15] MEDS ORDERED: DIPHTH/TET/ACEL PERTUSS (ADULT) 0.5 ML VIAL IM* ONE (11:00)
[2018-12-15] MEDS: IBUPROFEN 800 MG TAB PO SCH (20:49)
[2018-12-16] MEDS: HYDROCODONE/APAP (5/325) TAB PO PRN ×3 (00:18→18:17)
[2018-12-16] MEDS: DEXTROSE 5%-LR 1,000 ML IV SCH ×2 (02:08→10:08)
[2018-12-16] MEDS: IBUPROFEN 800 MG TAB PO SCH ×3 (02:29→18:11)
[2018-12-16 03:45] VITALS: BP 95/55; PULSE 60; RESP 18
[2018-12-16] MEDS: HYDROCODONE/APAP (5/325) TAB PO SCH ×3 (06:09→21:41)
[2018-12-16 08:00] VITALS: BP 95/53; PULSE 84; RESP 16
[2018-12-16] MEDS: SENNA/DOCUSATE NA (8.6MG/50MG) TAB PO SCH ×2 (08:48→21:13)
[2018-12-16 12:00] VITALS: BP 121/60; PULSE 63; RESP 17
[2018-12-16 15:25] VITALS: BP 119/77; PULSE 85; RESP 18
[2018-12-16] MEDS: MAGNESIUM HYDROXIDE 30ML CUP PO PRN (18:17)
[2018-12-16 19:55] VITALS: BP 110/74; PULSE 85; RESP 19
[2018-12-17] MEDS: IBUPROFEN 800 MG TAB PO SCH ×2 (03:12→11:26)
[2018-12-17 03:40] VITALS: BP 135/66; PULSE 85; RESP 18
[2018-12-17] MEDS: HYDROCODONE/APAP (5/325) TAB PO SCH (05:31)
[2018-12-17 08:00] VITALS: BP 123/65; PULSE 74; RESP 18
[2018-12-17] MEDS ORDERED: MEASLES,MUMPS,RUBELLA VACCINE INJ SC* ONE (09:00)
[2018-12-17] MEDS ORDERED: DIPHTH/TET/ACEL PERTUSS (ADULT) 0.5 ML VIAL IM* ONE (09:00)
[2018-12-17] MEDS: SENNA/DOCUSATE NA (8.6MG/50MG) TAB PO SCH (09:33)
[2018-12-17] MEDS: MAGNESIUM HYDROXIDE 30ML CUP PO PRN (09:37)
[2018-12-17] MEDS ORDERED: BISACODYL 10 MG SUPP PR ONE (10:00)
[2018-12-17] MEDS: HYDROCODONE/APAP (5/325) TAB PO PRN (11:26)
== END 2018-12-17 14:05 | disposition home or self-care (01) | DRG 788 ==
LOC: L-D 19:15 → PP1 12-15 02:08
PROVIDERS: ADMIT Obstetrics & Gynecology; ATTEND Obstetrics & Gynecology
PROC: 10907ZC Drainage of Amniotic Fluid, Therapeutic from Products of Conception, Via Natural or Artificial Opening (ICD-10-PCS; 2018-12-14)
PROC: 10D00Z1 Extraction of Products of Conception, Low, Open Approach (ICD-10-PCS; principal; 2018-12-14 21:00)
DX: O34.211 Maternal care for low transverse scar from previous cesarean delivery (principal); O32.8XX0 Maternal care for other malpresentation of fetus, not applicable or unspecified; Z3A.39 39 weeks gestation of pregnancy; Z37.0 Single live birth
CPT/HCPCS: 85025; 85610; 85730; 86592; 86850; 86900; 86901; 87340; 99464; J0690; J1885; J2270; J2274; J2405; J2590; J2765; J7120; J7121